=== PATIENT | male | born 1965 ===

== ENCOUNTER 2025-02-22 12:51 | Emergency (ER) | payer OTHER ==
[~2025-02-22] VITALS: Ht 188 cm; Wt 72.5 kg
[2025-02-22 13:07] VITALS: TEMP 36.9; O2SAT 100
[2025-02-22] MEDS: IBUPROFEN 600MG TABLET PO ONE (16:12)
[2025-02-22] MEDS: LIDOCAINE 5% PATCH TOP STA (16:13)
[2025-02-22] MEDS ORDERED: LIDO700A30 TP (16:28)
[2025-02-22] MEDS ORDERED: KETO10TA2 MT (16:28)
[2025-02-22 16:40] VITALS: BP 175/96; PULSE 59; RESP 18; O2SAT 100
== END 2025-02-22 16:37 | disposition home or self-care (01) ==
LOC: ER 12:51
DX: M54.2 Cervicalgia (principal); M25.522 Pain in left elbow; M25.521 Pain in right elbow; M25.561 Pain in right knee; Z88.0 Allergy status to penicillin; V49.40XA Driver injured in collision with unspecified motor vehicles in traffic accident, initial encounter; Y93.89 Activity, other specified; Y92.89 Other specified places as the place of occurrence of the external cause; Y99.8 Other external cause status
CPT/HCPCS: 99283